=== PATIENT | female | born 1985 | race Caucasian/White ===

== ENCOUNTER → 2018-03-17 | Outpatient (CLI) | payer OTHER ==
[~2018-03-17] MED LIST: ASPI81EC PO; CIPR500 PO; CYAN500 PO; CYCL10 PO; Cleocin HCl150 MG PO; ENOX40I SQ; FAMO20 PO; FOLI1 PO; HYDACE5 PO; HYDPAM50 PO; IBUP600 PO; IBUP800 PO; MULVITMINE PO; NITR100CA PO; ONDA4 PO; OXYC10ER PO; OXYC5 PO; PHENA200 PO; PROACE100 PO; PROM25 PO; PYRI100 PO; SERT25 PO
== END | disposition home or self-care (01) ==
LOC: LAB SHORT 14:56 → LAB 14:56
PROVIDERS: Obstetrics & Gynecology
DX: Z01.419 Encounter for gynecological examination (general) (routine) without abnormal findings (principal)
CPT/HCPCS: 87624; G0123

== ENCOUNTER → 2018-06-16 | Outpatient (CLI) | payer OTHER ==
[2018-06-16 16:15] LABS: Source, Urine Clean Catch
[2018-06-16 18:21] LABS: Appearance, Urine Cloudy (Clear); Bilirubin, Urine Neg (Neg); Blood, Urine 1+ (Neg); Color, Urine Yellow (P-Yellow); Glucose Qualitative, Urine Neg (Neg); Ketones, Urine Neg (Neg); Leukocyte Esterase, Urine 3+ (Neg); Nitrite, Urine Pos (Neg); Protein, Urine 2+ (Neg); Specific Gravity, Urine 1.015 (1.003-1.022); Urobilinogen, Urine NORM (Normal); pH, Urine 6.5 (5.0-8.0)
[2018-06-16 18:42] LABS: White Blood Cells, Urine 25-50 /hpf (0-5)
[2018-06-16 18:43] LABS: Bacteria Many /hpf; Squamous Epithelial Cells Mod /hpf (Few)
[2018-06-17 11:35] LABS: Candida species (DNA Probe) Negative (NEGATIVE); G. vaginalis (DNA Probe) Positive (NEGATIVE); T. vaginalis (DNA Probe) Negative (NEGATIVE)
== END | disposition home or self-care (01) ==
LOC: LAB SHORT 15:08 → LAB 15:08
PROVIDERS: Obstetrics & Gynecology
DX: N76.0 Acute vaginitis (principal); R39.9 Unspecified symptoms and signs involving the genitourinary system
CPT/HCPCS: 81001; 87077; 87086; 87186; 87480; 87510; 87660

== ENCOUNTER → 2018-06-16 | Outpatient (CLI) | payer OTHER | END | disposition home or self-care (01) | LOC: LAB SHORT 07:32 → PLD 07:32 | DX: R87.810 Cervical high risk human papillomavirus (HPV) DNA test positive (principal) | CPT/HCPCS: 88305 ==

== ENCOUNTER → 2018-12-21 | Outpatient (CLI) | payer OTHER ==
[2018-12-22 08:54] LABS: Candida species (DNA Probe) Negative (NEGATIVE); G. vaginalis (DNA Probe) Positive (NEGATIVE); T. vaginalis (DNA Probe) Positive (NEGATIVE)
== END | disposition home or self-care (01) ==
LOC: LAB 13:56 → LAB SHORT 13:56
PROVIDERS: Obstetrics & Gynecology
DX: N76.0 Acute vaginitis (principal)
CPT/HCPCS: 87480; 87510; 87660

== ENCOUNTER → 2020-04-01 | Outpatient (CLI) | payer OTHER ==
[2020-04-01 11:54] LABS: Source, Urine Clean Catch
[2020-04-01 15:32] LABS: U Amphetamine Screen DETECTED; U Barbituate Screen Not Detected; U Benzodiazapine Screen Not Detected; U Buprenorphine Screen DETECTED; U Cannabinoids Screen Not Detected; U Cocaine Screen Not Detected; U Methadone Screen Not Detected; U Methamphetamine Screen Not Detected; U Opiates Screen Not Detected; U Oxycodone Screen Not Detected; U Phencyclidine Screen Not Detected; U Propoxyphene Screen Not Detected
[2020-04-01 15:40] LABS: Amorphous Light (0-Heavy); Bacteria Many /hpf; Calcium Oxalate Crystals Mod /hpf; Mucus Mod (0-Heavy); Red Blood Cells, Urine 0-2 /hpf (0-2); Squamous Epithelial Cells Mod /hpf (Few)
== END | disposition home or self-care (01) ==
LOC: LAB 11:50 → LAB SHORT 11:50
PROVIDERS: Obstetrics & Gynecology
DX: Z34.81 Encounter for supervision of other normal pregnancy, first trimester (principal)
CPT/HCPCS: 81015; 87086; G0480

== ENCOUNTER 2020-09-24 00:05 | Inpatient (IN) | payer OTHER ==
[~2020-09-24] VITALS: Ht 167.6 cm; Wt 59.0 kg
[2020-09-24 01:32] LABS: BASOPHILS ABSOLUTE AUTO 0.01 K/mm3 (0.00-0.23); BASOPHILS PERCENT AUTO 0 % (0-2); EOSINOPHILS ABSOLUTE AUTO 0.01 K/mm3 (0.00-0.68); EOSINOPHILS PERCENT AUTO 0 % (0-6); Hematocrit 33.2 % (33.0-51.0); Hemoglobin 9.1 g/dL (11.5-16.0); IMMATURE GRAN ABSOLUTE AUTO 0.02 K/mm3 (0.00-0.10); IMMATURE GRAN PERCENT AUTO 0 % (0-1); LYMPHOCYTES ABSOLUTE AUTO 1.27 K/mm3 (0.84-5.20); LYMPHOCYTES PERCENT AUTO 23 % (21-46); MONOCYTES ABSOLUTE AUTO 0.26 K/mm3 (0.16-1.47); MONOCYTES PERCENT AUTO 5 % (4-13); Mean Corpuscular HGB 19.6 pg (26.0-34.0); Mean Corpuscular HGB Conc 27.4 g/dL (31.5-36.5); Mean Corpuscular Volume 72 fL (80-100); NEUTROPHILS PERCENT AUTO 72 % (41-73); NRBC ABSOLUTE 0.02 K/mm3 (0.00-0.02); NRBC Auto 0.4 /100 WBC (0.0-0.2); Platelet Count 184 K/mm3 (150-400); RDW Coefficient Variation 17.2 % (11.7-14.2); RDW Standard Deviation 42.8 fL (35.1-46.3); Red Blood Cell Count 4.64 M/mm3 (3.80-5.20); White Blood Cell Count 5.57 K/mm3 (4.00-11.30)
[2020-09-24 01:52] LABS: U Amphetamine Screen Not Detected; U Barbituate Screen Not Detected; U Benzodiazapine Screen Not Detected; U Buprenorphine Screen Not Detected; U Cannabinoids Screen Not Detected; U Cocaine Screen Not Detected; U Methadone Screen Not Detected; U Methamphetamine Screen DETECTED; U Opiates Screen DETECTED; U Oxycodone Screen Not Detected; U Phencyclidine Screen Not Detected; U Propoxyphene Screen Not Detected
[2020-09-24 02:08] LABS: PCO2 Cord - Arterial 49.3 mmHg (40-50); PO2 Cord - Arterial 15.1 mmHg (16-20); pH Cord - Arterial 7.32 (7.28-7.35)
[2020-09-24 02:09] LABS: PCO2 Cord - Venous 43.3 mmHg (40-50); PO2 Cord - Venous 24.8 mmHg (28-32); pH Umbilical Cord - Venous 7.37 (7.26-7.35)
--- NOTE | 2020-09-24 02:09 | NUR ---
09/24/20 0209 Sean Ngo DELIVERY OF VIABLE MALE INFANT AT 0150. SEE ANESTHESIA AND SUMMARIES. CORD SEGMENT GIVEN TO RT FOR CORD GASES. CORD BLOOD GIVEN TO [facility] RN. YOHANA BLOCK DONE IMMEDIATELY POST OP PER DR. MCNAMARA
--- NOTE | 2020-09-24 02:13 | NUR ---
RT STOOD BY FOR C SECTION. BABY WAS DELIVERED TO WARMER WITH STRONG CRY AND GOOD TONE. BABY WAS DRIED AND STIMULATED. RT EXCUSED. RN TO CALL RT IF RT NEEDED.
[2020-09-24 02:23] LABS: Influenza A, PCR Negative (NEGATIVE); Influenza B, PCR Negative (NEGATIVE); Resp Syncytial Virus, PCR Negative (NEGATIVE); SARS-Cov-2 (COVID-19) PCR, MMC Negative (NEGATIVE)
--- NOTE | 2020-09-24 11:22 | NUR ---
On arrival to shift, Radha states she is starting to withdraw and that the Suboxone will make it worse and she is in so much pain that she cannot handle it. [address] Herron aware of pt refusing suboxone at this time. medicated with percocet per orders. new orders for labetalol 100mg for bp. Pt appears irritated and complaining of significant nausea. Medicated with zofran.
[2020-09-24 12:35] LABS: BASOPHILS ABSOLUTE AUTO 0.01 K/mm3 (0.00-0.23); BASOPHILS PERCENT AUTO 0 % (0-2); EOSINOPHILS PERCENT AUTO 0 % (0-6); Hematocrit 21.4 % (33.0-51.0); IMMATURE GRAN ABSOLUTE AUTO 0.04 K/mm3 (0.00-0.10); IMMATURE GRAN PERCENT AUTO 1 % (0-1); LYMPHOCYTES ABSOLUTE AUTO 0.67 K/mm3 (0.84-5.20); LYMPHOCYTES PERCENT AUTO 8 % (21-46); MONOCYTES ABSOLUTE AUTO 0.35 K/mm3 (0.16-1.47); MONOCYTES PERCENT AUTO 4 % (4-13); Mean Corpuscular Volume 71 fL (80-100); NEUTROPHILS ABSOLUTE AUTO 7.23 K/mm3 (1.96-9.15); NEUTROPHILS PERCENT AUTO 87 % (41-73); NRBC ABSOLUTE 0.02 K/mm3 (0.00-0.02); NRBC Auto 0.2 /100 WBC (0.0-0.2); Platelet Count 120 K/mm3 (150-400); RDW Coefficient Variation 16.9 % (11.7-14.2); RDW Standard Deviation 42.5 fL (35.1-46.3)
--- NOTE | 2020-09-24 15:18 | NUR ---
INTO ROOM YOLIS CARE DONE ASSUMED CARE FROM A LILI RN, BEDSIDE REPORT DONE WHEN LISA NOTICED WAS CHANGED FROM A LILI WRAPPING IT, MY SELF AND RN UNWRAPPED IT TO FIND A BROWN SUBSTANCE IN THE TUBING, FIRST PATIENT DENIED USE THEN WHEN BOYFRIEND LEFT ROOM SHE SAID SHE PLACED HEROIN IN IT WITHOUT BOYFRIEND KNOWING, DID NOT FLUSH IV , REMOVED IV AT THIS TIME WILL REPLACE IF PATIENT NEEDS IV FOR BLOOD, STATES SHE GAVE IT TO HERSELF
--- NOTE | 2020-09-24 15:20 | NUR ---
IN ROOM WITH CE Long RN RN NOTICED COBAN AND IV LOOKED DIFFERENT UNWRAPPED IV NOTICED BROWN LIQUID IN IV, AT FIRST PATIENT DENIED USING IV, THEN BOYFRIEND GRAPPED BAG AND WALKED OUT OF ROOM, THEN PATIENT ADMITTED SHE PLACED HEROIN IN IV, STATED HER BOYFRIEND DIDNT KNOW AND COULDNT REMEMBER WHEN SHE DID IT, POSSIBLY 12-1300, STATED SHE HAD IT IN HER PURSE, IV D/C WITH REPLACE IF IV ACCESS NEEDED AGAIN, CPS AND DR GLASS NOTIFIED BY LILI HAWK
--- NOTE | 2020-09-24 16:04 | NUR ---
Radha Manning csd worker notified of pt shooting up drugs through her iv while she was here at the hospital and the need for lead case manager to come today to remove child and that the child was unsafe being in her care. Radha aware of what happened and plans to come to [facility] today around 0.
--- NOTE | 2020-09-24 16:20 | NUR ---
ABEL CUTLER RN & I WALKED IN TO ROUND ON COLLINS AND CHANGE PT ASSIGNMENT AND I NOTICED THAT COLLINS'S COBAND ON HER IV HAD BEEN MOVED WHEN I HAD ORIGINALLY INITIALED IT AND SHARPIED IT TO ENSURE NOTHING COULD GO THROUGH IT BESIDES WHAT I MEDICATED HER WITH. WHEN I UNWRAPPED HER IV AND ASKED WHY THAT COBAND HAD BEEN MOVED, MELISA THE FOB HAD GOT DEFENSIVE AND SAID THAT HE LOOSENED IT BECAUSE IT WAS CAUSING HER PAIN. ABEL AND I THEN NOTICED THAT THERE WAS BROWN CHEMICAL LOOKING SUBSTANCE IN THE IV TUBING. i ASKED COLLINS IF SHE HAS USED HER IV AND PUT ANYTHING IN IT AND SHE DENIED IT AND SAID THAT SHE HADNT AND IT WAS JUST OLD BLOOD. ABEL AND I THEN TOLD HER WE NEEDED TO KNOW IF SHE HAD PUT ANYTHING THROUGH IT BECAUSE WE WERE GIVING HER MEDICATIONS TOO AND IT COULD KILL HER AFTER MULTIPLE QUESTIONS, MELISA, CASS, HAD QUICKLY GATHERED HIS BACKPACK UP AND LEFT THE UNIT. AFTER MELISA WAS OUT OF THE ROOM I TOLD COLLINS THAT SHE NEEDED TO BE HONEST WITH US AND AGAIN IF SHE HAD PUT ANYTHING THROUGH HER IV. SHE THEN DISCLOSED TO US THAT SHE HAD USED IT WHILE MELISA WAS GONE AND PUT WHATEVER WAS LEFTOVER IN HER PURSE AND SHE WASNT SURE IF IT WAS "HEROIN, PILLS OR METH." SHE SAID SHE LIED BECAUSE SHE DID NOT WANT MELISA TO KNOW WHAT SHE DID. DR GLASS NOTIFIED AND AWARE. NEW ORDERS FOR 5MG ROXICODONE Q2 PRN BREATHROUGH PAIN AND NO IV UNLESS SHE NEEDS TRANSFUSION. DR CAAMRENA INSULATION MANAGER AWARE WELL AND NEW ORDERS FOR NOT TO BE IN ROOM AND TO BE IN NURSERY.
[2020-09-24 18:08] LABS: Hematocrit 19.1 % (33.0-51.0); Mean Corpuscular HGB 20.1 pg (26.0-34.0); Mean Corpuscular HGB Conc 28.3 g/dL (31.5-36.5); Mean Corpuscular Volume 71 fL (80-100); Platelet Count 106 K/mm3 (150-400); RDW Coefficient Variation 16.7 % (11.7-14.2); RDW Standard Deviation 42.3 fL (35.1-46.3); Red Blood Cell Count 2.68 M/mm3 (3.80-5.20); White Blood Cell Count 7.52 K/mm3 (4.00-11.30)
[2020-09-24 18:11] LABS: Hemoglobin 5.4 g/dL (11.5-16.0)
--- NOTE | 2020-09-24 22:03 | NUR ---
NEW IV PLACED BY PROSTHETIC AIDES TEACHER
[2020-09-25 06:36] LABS: BASOPHILS ABSOLUTE AUTO 0.01 K/mm3 (0.00-0.23); BASOPHILS PERCENT AUTO 0 % (0-2); EOSINOPHILS PERCENT AUTO 0 % (0-6); Hematocrit 23.7 % (33.0-51.0); Hemoglobin 7.2 g/dL (11.5-16.0); IMMATURE GRAN ABSOLUTE AUTO 0.03 K/mm3 (0.00-0.10); IMMATURE GRAN PERCENT AUTO 0 % (0-1); LYMPHOCYTES PERCENT AUTO 11 % (21-46); MONOCYTES ABSOLUTE AUTO 0.44 K/mm3 (0.16-1.47); MONOCYTES PERCENT AUTO 5 % (4-13); Mean Corpuscular HGB 22.4 pg (26.0-34.0); Mean Corpuscular HGB Conc 30.4 g/dL (31.5-36.5); Mean Corpuscular Volume 74 fL (80-100); NEUTROPHILS ABSOLUTE AUTO 7.59 K/mm3 (1.96-9.15); NEUTROPHILS PERCENT AUTO 84 % (41-73); NRBC ABSOLUTE 0.03 K/mm3 (0.00-0.02); NRBC Auto 0.3 /100 WBC (0.0-0.2); Platelet Count 105 K/mm3 (150-400); RDW Coefficient Variation 17.9 % (11.7-14.2); RDW Standard Deviation 47.6 fL (35.1-46.3); Red Blood Cell Count 3.21 M/mm3 (3.80-5.20); White Blood Cell Count 9.07 K/mm3 (4.00-11.30)
[2020-09-25 07:11] LABS: HBSAG SCREEN Negative (Negative); HEP B CORE AB, TOT Negative (Negative); HEP C VIRUS AB >11.0 (0.0-0.9); HIV SCREEN 4TH GENERATION WRFX Non Reactive (Non Reactive)
--- NOTE | 2020-09-25 08:33 | NUR ---
POWER GLIDE IN DIPAK PLACED BY MANAGEMENT RECRUITER
--- NOTE | 2020-09-25 08:39 | NUR ---
REFUSES TO USE BINDER
--- NOTE | 2020-09-25 09:40 | NUR ---
walked to bathroom voided tolerated well
--- NOTE | 2020-09-25 11:17 | NUR ---
UP MULTIPLE TIMES TO BATHROOM STATES SHE FEELS LIKE SHE NEEDS TO HAVE BOWEL MOVEMENT COLACE GIVEN, DENIES BEING DIZZY OR WEAK
[2020-09-25 13:28] LABS: BASOPHILS ABSOLUTE AUTO 0.01 K/mm3 (0.00-0.23); BASOPHILS PERCENT AUTO 0 % (0-2); EOSINOPHILS ABSOLUTE AUTO 0.01 K/mm3 (0.00-0.68); EOSINOPHILS PERCENT AUTO 0 % (0-6); Hematocrit 24.5 % (33.0-51.0); Hemoglobin 7.3 g/dL (11.5-16.0); IMMATURE GRAN ABSOLUTE AUTO 0.11 K/mm3 (0.00-0.10); IMMATURE GRAN PERCENT AUTO 1 % (0-1); LYMPHOCYTES PERCENT AUTO 10 % (21-46); MONOCYTES ABSOLUTE AUTO 0.39 K/mm3 (0.16-1.47); MONOCYTES PERCENT AUTO 5 % (4-13); Mean Corpuscular HGB 22.1 pg (26.0-34.0); Mean Corpuscular HGB Conc 29.8 g/dL (31.5-36.5); Mean Corpuscular Volume 74 fL (80-100); NEUTROPHILS PERCENT AUTO 84 % (41-73); NRBC ABSOLUTE 0.02 K/mm3 (0.00-0.02); NRBC Auto 0.2 /100 WBC (0.0-0.2); Platelet Count 118 K/mm3 (150-400); RDW Coefficient Variation 17.8 % (11.7-14.2); RDW Standard Deviation 47.3 fL (35.1-46.3); Red Blood Cell Count 3.31 M/mm3 (3.80-5.20); White Blood Cell Count 8.22 K/mm3 (4.00-11.30)
--- NOTE | 2020-09-25 15:00 | NUR ---
Mother back to room
--- NOTE | 2020-09-25 16:30 | NUR ---
Assumed care from Darius Yun RN.
--- NOTE | 2020-09-25 16:43 | NUR ---
REPORT TO TICO HAWK
--- NOTE | 2020-09-25 17:00 | NUR ---
CSD reported plan is same as yesterday and to follow form as written yesterday.
--- NOTE | 2020-09-25 17:30 | NUR ---
Pt to nursery to see nb via wheelchair. Reports pain relief with earlier medication. Transferred well. Able to pick nb up out of crib w/o assistance. is going to try to feed him his bottle.
[2020-09-25 17:38] LABS: BASOPHILS ABSOLUTE AUTO 0.01 K/mm3 (0.00-0.23); BASOPHILS PERCENT AUTO 0 % (0-2); EOSINOPHILS ABSOLUTE AUTO 0.01 K/mm3 (0.00-0.68); EOSINOPHILS PERCENT AUTO 0 % (0-6); Hematocrit 25.5 % (33.0-51.0); Hemoglobin 7.7 g/dL (11.5-16.0); IMMATURE GRAN ABSOLUTE AUTO 0.07 K/mm3 (0.00-0.10); IMMATURE GRAN PERCENT AUTO 1 % (0-1); LYMPHOCYTES ABSOLUTE AUTO 0.85 K/mm3 (0.84-5.20); LYMPHOCYTES PERCENT AUTO 11 % (21-46); MONOCYTES ABSOLUTE AUTO 0.43 K/mm3 (0.16-1.47); MONOCYTES PERCENT AUTO 6 % (4-13); Mean Corpuscular HGB 22.4 pg (26.0-34.0); Mean Corpuscular HGB Conc 30.2 g/dL (31.5-36.5); Mean Corpuscular Volume 74 fL (80-100); NEUTROPHILS ABSOLUTE AUTO 6.49 K/mm3 (1.96-9.15); NEUTROPHILS PERCENT AUTO 83 % (41-73); NRBC ABSOLUTE 0.03 K/mm3 (0.00-0.02); NRBC Auto 0.4 /100 WBC (0.0-0.2); Platelet Count 118 K/mm3 (150-400); RDW Coefficient Variation 18.1 % (11.7-14.2); RDW Standard Deviation 47.4 fL (35.1-46.3); Red Blood Cell Count 3.44 M/mm3 (3.80-5.20); White Blood Cell Count 7.86 K/mm3 (4.00-11.30)
[2020-09-25 17:39] LABS: Mean Platelet Volume 11.6 fL (9.1-12.4)
--- NOTE | 2020-09-26 12:30 | NUR ---
Dr. Herron here earlier this am, spoke with the freight representative from [facility] about whether or not they would give pt narcotics. they report they will not give narcotics on their campus. Dr. Herron had lengthy discussion about pt being able to admit in a few days and begin suboxone therapy either here as in pt or in [place] as outpt. [facility] said they could start her on suboxone. They then contacted AFSHIN from [facility] and he came in to further assess pt's willingness to go to rehab. She stated she does not want to go tomorrow as it is [place] and states she will go on 09/29 or 09/30. He expresses concern to RN that if pt does not remain inpatient she will not in fact report to rehab and will be unreachable and possibly using substances. Rn checked with nurse process control manager regarding potential for pt to stay through weekend as AFSHIN stated he could transport her to rehab on Wednesday. Pt is medically stable and able to discharge now to rehab if she desires but cannot remain inpt over weekend. AFSHIN states he understands. [facility] called to later to confirm they could admit her there if she could be there by 2 pm today or 2 pm tomorrow. RN informed them that pt has no desire to be admitted tomorrow and stated she will be there 09/28 and 09/29.
--- NOTE | 2020-09-26 14:21 | NUR ---
Spoke with Radha, CPS worker, who okayed RN being able to share information with paternal grandmother who has been calling for information. Parents also signed release of information. Grandmother, Nell Vigil, updated about nb status and potential length of stay. She stated she believes Radha and Sander will be possibly staying with her or Radha's parents. Radha reported she does not have intention to report to [facility] inpt treatment until 09/28 or 09/29. She states she would like [place] be [place].
--- NOTE | 2020-09-26 14:23 | NUR ---
BLOOD TRANSFUSION DATE, TIME, FLUSH AND AMOUNT PER SAM PEDERSON RN VIA PHONE - DOWNTIME FORGOT TO GO BACK IN AND COMPLETE - LATE ENTRY
[2020-09-26] MEDS ORDERED: ENOX40I SC (14:34)
[2020-09-26] MEDS ORDERED: Percocet 5-3251 EACH PO (14:35)
--- NOTE | 2020-09-26 14:50 | NUR ---
Printed d/c instructions reviewed w/pt and SO. Pt seems very anxious to discharge. Was just in nursery visiting nb and OBT stated she said to baby "I'll see you again". Pt did not seem receptive to teaching but listened to RN. Declined ppfu appointment but agreed to phone call as she states she will be in rehab then. Prescriptions given to patient and patient reminded there are no refills on her narcotics. Pt verbalized understanding, denied other needs and quickly ambulated off of unit without asking to see nb again prior to discharge.
--- NOTE | 2020-09-26 16:45 | NUR ---
Radha, child welfare publications sales representative, called to inform RN that report that state had officially taken custody of nb and he was to be placed with foster parents. Updated action plan faxed. Copy placed in pt and nb chart.
--- NOTE | 2020-09-29 12:50 | NUR ---
NO SHOW PHONE VISIT. [facility] I CALLED PT. AT 0945 THEN AGAIN AT 1250 MESSAGES LEFT BOTH TIMES. DE. GLASS NOTIFIED IN PERSON AT DESK THAT I WAS UNABLE TO REACH PT.
--- NOTE | 2020-10-01 12:47 | NUR ---
ADDED DELIVERY C/S DR CAMERON
== END 2020-09-26 15:01 | disposition home or self-care (01) | DRG 787 ==
LOC: OBS 00:05 → BC 00:12 → OBS 00:20 → BC 00:26
PROVIDERS: Obstetrics & Gynecology; ADMIT Nurse Practitioner Obstetrics & Gynecology
PROC: 6A550ZT Pheresis of Cord Blood Stem Cells, Single (ICD-10-PCS; 2020-09-24)
PROC: 10D00Z1 Extraction of Products of Conception, Low, Open Approach (ICD-10-PCS; principal; 2020-09-24 00:45)
DX: O99.324 Drug use complicating childbirth (principal); D68.52 Prothrombin gene mutation; O99.12 Other diseases of the blood and blood-forming organs and certain disorders involving the immune mechanism complicating childbirth; F11.10 Opioid abuse, uncomplicated; Z3A.39 39 weeks gestation of pregnancy; Z37.0 Single live birth
CPT/HCPCS: 0241U; 36415; 36430; 82803; 85025; 85027; 86317; 86592; 86704; 86708; 86762; 86803; 86850; 86900; 86901; 86923; 87340; 87389; A9270; C1751; J0290; J0690; J1650; J1885; J2210; J2370; J2405; J2590; J3010; J7050; J7120; P9016